=== PATIENT | female | born 1975 | race Caucasian/White ===

== ENCOUNTER 2017-08-01 14:57 | Emergency (ER) | payer BC ==
[2017-08-01 15:06] VITALS: BP 118/80
--- NOTE | 2017-08-01 16:04 | UC ---
Matt Hudson Gabriel, scribed for Eduar Vora MD on 08/01/17 at 1516 . FLU HPI - HPI Summary HPI Summary: This patient is a 42 year old F presenting to [facility] [place] with a chief complaint of flu like illness since 07-29-17. The patient rates the pain 2/10 in severity. Patient reports LEE, myalgia, nasal congestion, sore throat, rhinorrhea, and a low grade fever. - History of Current Complaint Chief Complaint: UCRespiratory Stated Complaint: BODY ACHES, CHILLS Time Seen by Provider: 08/01/17 15:14 Hx Last Menstrual Period: IUD Onset/Duration: Lasting Days, Still Present Severity Currently: Mild Severity Initially: Mild Pain Intensity: 2 Pain Scale Used: 0-10 Numeric Associated Signs & Symptoms: Positive: Fever, Myalgia, Sore Throat, Nasal Congestion, Headache - Allergy/Home Medications Allergies/Adverse Reactions: Allergies Allergy/AdvReac Type Severity Reaction Status Date / Time No Known Allergies Allergy Verified 08/01/17 15:08 PMH/Surg Hx/FS Hx/Imm Hx Previously Healthy: Yes Other History Of: Negative For: HIV, Hepatitis B - Surgical History Surgical History: Yes Surgery Procedure, Year, and Place: ear surgery in childhood - Family History Known Family History: Negative: Cardiac Disease, Hypertension, Diabetes, Renal Disease, Respiratory Disease, Seizure Disorder, Blood Disorder - Social History Lives: With Family Alcohol Use: Occasionally Alcohol Amount: 2x Substance Use Type: None Smoking Status (MU): Former Smoker Type: Cigarettes Have You Smoked in the Last Year: No When Did the Patient Quit Smoking/Using Tobacco: quit 9 years ago Review of Systems Constitutional: Fever ENT: Sore Throat, Nasal Discharge, Sinus Congestion Musculoskeletal: Myalgia Neurological: Headache All Other Systems Reviewed And Are Negative: Yes Physical Exam Triage Information Reviewed: Yes Vital Signs: Initial Vital Signs Temp 97.6 F 08/01/17 15:03 Pulse 98 08/01/17 15:03 Resp 18 08/01/17 15:03 BP 118/80 08/01/17 15:03 Pulse Ox 99 08/01/17 15:03 Vital Signs Reviewed: Yes - Additional Comments VITAL SIGNS: Reviewed. GENERAL: Patient is a well developed and nourished F who is lying comfortable in the stretcher. Patient is not in any acute respiratory distress. HEAD AND FACE: Normocephalic EYES: PERRLA, EOMI x 2. EARS: Hearing grossly intact. MOUTH: Oropharynx within normal limits. NECK: Supple, trachea is midline, no adenopathy, no JVD, no carotid bruit. CHEST: Symmetric, no tenderness at palpation LUNGS: Clear to auscultation bilaterally. No wheezing or crackles. CVS: Regular rate and rhythm, S1 and S2 present, no murmurs or gallops appreciated. ABDOMEN: Soft, non-tender. Bowel sounds are normal. No abdominal abnormal pulsations. EXTREMITIES: Full ROM in all major joints, no edema, no cyanosis or clubbing. NEURO: Alert and oriented x 3. No acute neurological deficits. Speech is normal and follows commands. SKIN: Dry and warm Flu Course/Dx - Course Course Of Treatment: I discussed all the findings and test results with the patient. Pt was instructed to return to the urgent care or go to ER immediately if any of the symptoms return or worsens. Plan of care was discussed with the patient and pt understands and agrees. All questions were answered to patient satisfaction. There were no further complaints or concerns. The patient was diagnosed with influenza B after a positive swab. Medication given. - Differential Dx/Diagnosis Differential Diagnosis/HQI/PQRI: Bronchitis, Influenza, Pneumonia, Upper Respiratory Infection Provider Diagnoses: Influenza Discharge - Discharge Plan Condition: Stable Disposition: HOME Prescriptions: Oseltamivir CAP* [Tamiflu CAP*] 75 mg PO BID #10 cap Patient Education Materials: Influenza (DC) Forms: *Work Release Referrals: Lisa Arreola NP [Primary Care Provider] - Additional Instructions: Take medications as instructed Increase your fluid intake Return to the if symptoms worsen The documentation as recorded by the Matt duggan Gabriel accurately reflects the service I personally performed and the decisions made by me, Eduar Vora MD.
== END 2017-08-01 16:06 | disposition home or self-care (01) ==
LOC: UCEAST 14:57
DX: J11.1 Influenza due to unidentified influenza virus with other respiratory manifestations (principal); Z87.891 Personal history of nicotine dependence
CPT/HCPCS: 87502; 87651; 99211; G0463

== ENCOUNTER → 2019-04-15 08:27 | Day surgery (SDC) | payer BC ==
[~2019-04-15 08:27] MED LIST: Acetaminophen TAB* 325 MG ONE; Acetaminophen TAB* 325 MG PO ONE; Buffered Lidocaine 1% SYRIN* 1 ML/SYRINGE INTRADERM ONE; Dexamethasone IV* 4 MG/ML 1 ML (4 MG) ONE; DiMENhydriNATE IV* 50 MG/ML VIAL IV PUSH PRN; Famotidine IV* 10 MG/ML 2 ML (20 mg) IV ONE; Famotidine IV* 10 MG/ML 2 ML (20 mg) ONE; HYDROcodone/ACETAMIN 5-325 MG* 1 TAB PO PRN; Lactated Ringers 1000 ML Bag* 1,000 ML IV SCH; Lidocaine 2% PF * 5 ML VIAL ONE; Midazolam* 1 MG/ML 2 ML VIAL (2 MG) ONE; Naloxone* 0.4 MG/ML 1 ML VIAL IV PRN; Ondansetron INJ* 2 MG/ML VIAL IV PRN; Ondansetron INJ* 2 MG/ML VIAL ONE; PROCHLORPERAZINE INJ 5 MG/ML 2 ML VIAL IV PRN; Propofol* 10 MG/ML 20 ML BTL ONE; diPHENhydraMINE IV* 50 MG/ML 1 ml VIAL (BENADRYL) IV PRN; fentaNYL* 50 MCG/ML 2 ML VIAL (100 MCG VIAL) IV PRN; fentaNYL* 50 MCG/ML 2 ML VIAL (100 MCG VIAL) ONE
[2019-04-15 11:20] VITALS: BP 116/78
--- NOTE | 2019-04-15 11:32 | OP ---
DATE OF OPERATION: 04/15/19 - SDS DATE OF : 77 SURGEON: Deangelo Correia MD ANESTHESIA: None. 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 OPERATIVE PROCEDURE: Debridement of the left mastoid bowl under IV sedation. COMPLICATIONS: None. DISPOSITION: Good. SPECIMEN: None. ESTIMATED BLOOD LOSS: None. DESCRIPTION OF PROCEDURE: The patient was taken to the operating room, placed in the supine position on the operating room table and maintained with IV sedation. Microscope was brought in, speculum was placed. Cerumen and cholesteatoma was suctioned from the posterior bowl. The remainder of the canal and bowl was cleaned with the suction and Alligators and the bowl was then irrigated with Betadine, which was suctioned. The patient tolerated this procedure well, no complications, and transferred to the recovery room in stable condition. [id number]/CPS #: [id number] MTDD
== END | disposition home or self-care (01) ==
LOC: OR 08:27
PROVIDERS: ATTEND Otolaryngology
DX: H95.02 Recurrent cholesteatoma of postmastoidectomy cavity, left ear (principal); H83.12 Labyrinthine fistula, left ear; Z87.891 Personal history of nicotine dependence; F41.9 Anxiety disorder, unspecified
CPT/HCPCS: 81025; A9270-GY; J1100; J2250; J2405; J2704; J3010

== ENCOUNTER 2019-09-30 16:53 | Emergency (ER) | payer BC ==
[2019-09-30 17:05] VITALS: BP 152/79
[2019-09-30] MEDS ORDERED: Lidocaine 1% MPF ** 5 ML VIAL INJ ONE (17:06)
--- NOTE | 2019-09-30 17:09 | UC ---
Laceration HPI - HPI Summary HPI Summary: SUSTAINED A LACERATION TO HER LEFT FOURTH FINGER WHILE DOING DISHES JUST PRIOR TO ARRIVAL. LAST TETANUS OVER 6 YEARS AGO. - History Of Current Complaint Chief Complaint: UCLaceration Stated Complaint: FINGER LAC Time Seen by Provider: 09/30/19 16:55 Hx Obtained From: Patient Hx Last Menstrual Period: iud Laceration Location: Finger - LEFT 4TH Mechanism Of Injury: Sharp Trauma Onset/Duration: Sudden Onset Severity: Moderate Pain Intensity: 4 Pain Scale Used: 0-10 Numeric Aggravating Factors: Movement Related History: Dominant Hand Right - Allergies/Home Medications Allergies/Adverse Reactions: Allergies Allergy/AdvReac Type Severity Reaction Status Date / Time No Known Allergies Allergy Verified 09/30/19 17:05 Home Medications: Home Medications NK [No Home Medications Reported] 04/13/19 [History Confirmed 04/15/19] PMH/Surg Hx/FS Hx/Imm Hx Previously Healthy: Yes Other History Of: Negative For: HIV, Hepatitis B - Surgical History Surgical History: Yes Surgery Procedure, Year, and Place: ear surgery in childhood. ear surgery left , [facility] 2018 - Family History Known Family History: Negative: Cardiac Disease, Hypertension, Diabetes, Renal Disease, Respiratory Disease, Seizure Disorder, Blood Disorder - Social History Alcohol Use: Weekly Alcohol Amount: 3-4 Substance Use Type: None Smoking Status (MU): Former Smoker Type: Cigarettes Amount Used/How Often: 1/2 pack a day for 5 yrs Have You Smoked in the Last Year: No When Did the Patient Quit Smoking/Using Tobacco: 2004 - Immunization History Most Recent Tetanus Shot: 5 yrs ago Review of Systems All Other Systems Reviewed And Are Negative: Yes Constitutional: Positive: Negative Skin: Positive: Other - LACERATION LEFT 4TH FINGER Respiratory: Positive: Negative Cardiovascular: Positive: Negative Gastrointestinal: Positive: Negative Musculoskeletal: Positive: Edema - LEFT 4TH FINGER Physical Exam Triage Information Reviewed: Yes Appearance: Well-Appearing, No Pain Distress, Well-Nourished Vital Signs: Initial Vital Signs Temp 98 F 09/30/19 17:00 Pulse 88 09/30/19 17:00 Resp 17 09/30/19 17:00 BP 152/79 09/30/19 17:00 Pulse Ox 100 09/30/19 17:00 Vital Signs Reviewed: Yes Eyes: Positive: Conjunctiva Clear ENT: Positive: Hearing grossly normal Neck: Positive: Supple Respiratory: Positive: No respiratory distress, No accessory muscle use Cardiovascular: Positive: Pulses Normal Abdomen Description: Positive: Soft Musculoskeletal: Positive: ROM Intact, Edema @ - LEFT 4TH FINGER, Other: - NO BONY TENDERNESS Neurological: Positive: Alert Psychological: Positive: Age Appropriate Behavior Skin: Positive: Other - 2CM LACERATION MEDIAL LEFT 4TH FINGER Laceration Repair - Laceration Repair 1 Description: Linear Laceration Size After Repair: Length (cm) - 2CM, Width (mm) - 0MM, Depth (mm) - 2MM Modified For Repair: No Type Injection: Digital Anesthesia Used: 1.0% Lido Cleansing Completed Via Routine Prep: Yes Closure Material: Sutures - 5 SIMPLE INTERRUPTED Closure Method: Single Layer Suture Of: Skin Suture Type: Prolene - 5-0 Laceration Course/Dx - Course/Dx Course Of Treatment: TIME OUT COMPLETE. FINGER PREPPED AND DRAPED IN STERILE FASHION. LACERATION REPAIRED WITHOUT DIFFICULTY. RING REMOVED FROM AFFECTED FINGER USING THE STRING METHOD. TDAP BOOSTED TODAY. TUBE GAUZE DRESSING APPLIED. FINGER SPLINT PROVIDED. FOLLOW-UP FOR SUTURE REMOVAL IN ABOUT 10 DAYS. - Diagnosis Provider Diagnosis: Laceration of left ring finger Discharge ED - Sign-Out/Discharge Documenting (check all that apply): Patient Departure All imaging exams completed and their final reports reviewed: No Studies - Discharge Plan Condition: Stable Disposition: HOME Patient Education Materials: Finger Laceration (ED) Referrals: Lisa Arreola NP [Primary Care Provider] - If Needed Additional Instructions: KEEP DRESSINGS IN PLACE AND DRY FOR THE FIRST 24 HRS. THEN YOU MAY REMOVE THE DRESSING AND GENTLY CLEANSE WITH SOAP AND WATER. PAT DRY AND RE-BANDAGE. APPLY THIN LAYER ANTIBIOTIC OINTMENT UNDER BANDAGE FOR FIRST 3-4 DAYS ONLY. I RECOMMEND AVOIDING NEOMYCIN CONTAINING PRODUCTS THEY CAN BE HIGHLY ALLERGENIC. CHANGE BANDAGE DAILY AND NEEDED IF IT BECOMES SOILED OR WET. SEEK FOLLOW-UP IF YOU DEVELOP SPREADING REDNESS OF THE SKIN, PURULENT DRAINAGE, FEVER, INCREASED PAIN OR ANY OTHER CONCERNING SYMPTOMS. RETURN TO HAVE YOUR FIVE (5) SUTURES REMOVED IN 10 DAYS TETANUS IMMUNIZATION GIVEN (TDAP): You have been given an immunization against tetanus. Please record this in your records. In general, a booster is needed only once every 10 years. The tetanus shot protects against tetanus or "lockjaw," which is a complication of certain wound infections (the tetanus shot cannot protect against the actual infection). The immunization site may become warm and red due to local reaction. If this occurs, apply warm compresses and take aspirin or ibuprofen to reduce inflammation and discomfort. Return for evaluation if the reaction becomes severe. - Billing Disposition and Condition Condition: STABLE Disposition: Home
[2019-09-30] MEDS ORDERED: Tetan/Diph/Pertus SYR(Tdap)* 0.5 ML SYR(BOOSTRIX) use SYR contains LATEX IM ONE (17:47)
== END 2019-09-30 18:11 | disposition home or self-care (01) ==
LOC: UCEAST 16:53
DX: S61.215A Laceration without foreign body of left ring finger without damage to nail, initial encounter (principal); W26.9XXA Contact with unspecified sharp object(s), initial encounter; Y93.G1 Activity, food preparation and clean up; Y92.9 Unspecified place or not applicable; Z23 Encounter for immunization; Z87.891 Personal history of nicotine dependence
CPT/HCPCS: 12001; 90471; 90715; 99211; G0463

== ENCOUNTER 2023-09-10 08:58 | Observation (INO) ==
[2023-09-10] MEDS ORDERED: oxyCODONE SR 10 mg TAB ONE (10:17)
[2023-09-10] MEDS ORDERED: Ondansetron 4 mg VIAL 2 MG/ML 2 ml VIAL ONE (10:18)
[2023-09-10] MEDS ORDERED: Scopolamine 1 mg/72hr PATCH ONE (10:18)
[2023-09-10 10:31] LABS: ABS Lymphocytes 1.4 10^3/uL (1.0-4.8); ABS Monocytes 0.6 10^3/uL (0.0-0.9); ABS Neutrophils 9.6 10^3/uL (1.5-7.6); ABS Nucleated RBC 0.01 10^3/ul; Eosinophil % 0.1 %; Hematocrit 39.4 % (35-45); Hemoglobin 13.4 g/dL (11.5-14.3); Mean Corpuscular Hemoglobin 31.7 pg (27-33); Mean Corpuscular Volume 93.4 fL (80-97); Mean Platelet Volume 7.8 fL (7.5-11.2); Nucleated Red Blood Cells % 0.1 %/100WBC (0.0-0.8); Platelet Count 266 10^3/uL (150-450); Red Blood Count 4.21 10^6/uL (3.63-4.92); Red Cell Distribution Width 12.5 % (12-17); White Blood Count 11.6 10^3/uL (3.8-11.8)
[2023-09-10 10:36] LABS: Anion Gap 12 mmol/L (2-16); Blood Urea Nitrogen 9 mg/dL (6-24); CO2 Carbon Dioxide 22 mmol/L (22-32); Calcium 9.1 mg/dL (8.6-10.3); Chloride 104 mmol/L (101-111); Creatinine, Serum 0.85 mg/dL (0.51-0.95); Glucose 115 mg/dL (70-100); Sodium 138 mmol/L (135-145)
[2023-09-10 10:42] LABS: HCG Pregnancy < 0.60 mIU/mL
[2023-09-10 10:45] LABS: Activated Partial Thrombo Time 32.5 seconds (26.0-38.0); INR 0.96 (0.83-1.13)
[2023-09-10] MEDS ORDERED: Naloxone 0.4 mg VIAL 0.4 mg/ml 1 ml VIAL IV PUSH PRN ×2 (12:00→12:53)
[2023-09-10] MEDS ORDERED: Midazolam 5 mg/5 ml VIAL 1 mg/ml 5 ml VIAL (5 mg) ONE (12:40)
[2023-09-10] MEDS ORDERED: Lidocaine 1% VIAL 10 MG/ML 30 ML VIAL ONE (12:40)
[2023-09-10] MEDS ORDERED: fentaNYL 100 mcg/2 ml 50 MCG/ML VIAL ONE (12:40)
[2023-09-10] MEDS ORDERED: Iohexol 350 (CONTRAST) 100 ML PAK IV ONE (12:41)
[2023-09-10] MEDS ORDERED: nitroGLYCERIN DRIP 25,000 MCG/250 ML BTL ONE (12:41)
[2023-09-10] MEDS ORDERED: Heparin 2 UNITS/ML IVPREMIX 3,000 UNIT/1,500 ML BAG IV ONE (12:41)
[2023-09-10] MEDS ORDERED: Flumazenil 0.5 mg/5 ml 0.1 MG/ML 5 ml VIAL IV PRN (12:53)
[2023-09-10] MEDS ORDERED: HYDROmorphone 0.5 MG/0.5 ML SYRINGE ONE ×2 (13:59→14:11)
[2023-09-10] MEDS: HYDROmorphone PCA 20 MG/20 ML PCA.SYRING PCA SCH (14:47)
[2023-09-10] MEDS: Clindamycin 900 MG/50 **NS BAG 900 MG/50 ML BAG IV ONE (15:04)
[2023-09-10] MEDS: fentaNYL 100 mcg/2 ml 50 MCG/ML VIAL IV SLOW PU ONE (15:05)
[2023-09-10] MEDS: Midazolam 10 mg/10 ml VIAL 1 mg/ml 10 ml VIAL (10 mg) IV SLOW PU ONE (15:27)
[2023-09-10] MEDS: Ondansetron 4 mg VIAL 2 MG/ML 2 ml VIAL IV SCH (22:27)
[2023-09-10] MEDS: NS 0.9% 1,000 ML IV SCH (22:28)
[2023-09-11 07:35] LABS: Hematocrit 38.4 % (35-45); Hemoglobin 12.9 g/dL (11.5-14.3)
[2023-09-11] MEDS ORDERED: HYDROcodone/ACETAMIN 5/325 mg TAB PO PRN (08:12)
[2023-09-11] MEDS: Ketorolac 10 mg TAB (NF) PO SCH (09:45)
[2023-09-11 10:06] VITALS: BP 112/75
== END 2023-09-11 10:57 | disposition home or self-care (01) ==
LOC: SSU 08:58 → CHICATH 08:58 → SUATTDRO 18:26
PROVIDERS: ADMIT Internal Medicine; ATTEND Internal Medicine
PROC: ANG.UFE (2023-09-10 11:15)